=== PATIENT | male | born 1980 | race African-American/Black ===

== ENCOUNTER 2017-04-16 02:46 | Inpatient (IN) | payer BC ==
[~2017-04-16] VITALS: Ht 175.3 cm; Wt 158.8 kg
[2017-04-16] MEDS ORDERED: IRON159 MG (03:09)
[2017-04-16] MEDS ORDERED: CARVEDILOL25 MG (03:09)
[2017-04-16] MEDS ORDERED: OMEPRAZOLE20 MG (03:09)
== END 2017-04-18 11:00 | disposition home or self-care (01) | DRG 310 ==
LOC: ER 02:46 → MEDI 12:55
PROC: 4A033R1 Measurement of Arterial Saturation, Peripheral, Percutaneous Approach (ICD-10-PCS; principal; 2017-04-16)
PROC: B246ZZZ Ultrasonography of Right and Left Heart (ICD-10-PCS; 2017-04-16)
PROC: 4A12X4Z Monitoring of Cardiac Electrical Activity, External Approach (ICD-10-PCS; 2017-04-16)
DX: I48.0 Paroxysmal atrial fibrillation (principal); G47.33 Obstructive sleep apnea (adult) (pediatric); D50.8 Other iron deficiency anemias; I10 Essential (primary) hypertension; E78.4 Other hyperlipidemia; Z86.73 Personal history of transient ischemic attack (TIA), and cerebral infarction without residual deficits; E66.09 Other obesity due to excess calories

== ENCOUNTER 2017-05-26 06:44 | Inpatient (IN) | payer BC ==
[~2017-05-26] VITALS: Ht 175.3 cm; Wt 179.2 kg
[~2017-05-26 06:44] MED LIST: CARVEDILOL25 MG; IRON159 MG; OMEPRAZOLE20 MG
[2017-05-26] MEDS ORDERED: FLOVENT DISKUS50 MCG (07:18)
[2017-05-26] MEDS ORDERED: CARVEDILOL6.25 MG (07:18)
[2017-05-26] MEDS ORDERED: XARELTO20 MG (07:19)
[2017-05-26] MEDS ORDERED: ESOMEPRAZOLE MA40 MG (07:19)
[2017-05-26] MEDS ORDERED: CLARITIN10 MG (07:20)
== END 2017-05-27 13:30 | disposition left against medical advice (07) | DRG 310 ==
LOC: ER 06:44 → MEDI 19:47 → SEC-K 19:47 → MEDI 05-27 01:18
PROC: 4A033R1 Measurement of Arterial Saturation, Peripheral, Percutaneous Approach (ICD-10-PCS; principal; 2017-05-26)
DX: I48.0 Paroxysmal atrial fibrillation (principal); I10 Essential (primary) hypertension; E78.4 Other hyperlipidemia; G47.33 Obstructive sleep apnea (adult) (pediatric); E66.8 Other obesity; Z86.73 Personal history of transient ischemic attack (TIA), and cerebral infarction without residual deficits